=== PATIENT | female | born 1975 | race Caucasian/White ===

== ENCOUNTER 2017-10-26 09:38 | Emergency (ER) | payer OTHER ==
[~2017-10-26] VITALS: Ht 170.2 cm; Wt 68.9 kg
[2017-10-26] MEDS ORDERED: AZITHROMYCIN 250 MG TABLET PO ONE (10:00)
[2017-10-26] MEDS ORDERED: ALBUTEROL FS 2.5 MG/3 ML VIAL.NEB CONTNEB ONE (10:00)
[2017-10-26] MEDS ORDERED: predniSONE 20 MG TABLET PO ONE (10:00)
[2017-10-26] MEDS ORDERED: IPRATROPIUM NEB FS 0.5 MG/2.5 ML AMPUL.NEB NEB ONE (10:00)
[2017-10-26] MEDS ORDERED: predniSONE 20 MG TABLET ONE (10:14)
[2017-10-26] MEDS ORDERED: AZITHROMYCIN 250 MG TABLET ONE (10:14)
[2017-10-26] MEDS ORDERED: ALBUTEROL FS 2.5 MG/3 ML VIAL.NEB ONE (10:38)
[2017-10-26] MEDS ORDERED: IPRATROPIUM NEB FS 0.5 MG/2.5 ML AMPUL.NEB ONE (10:38)
[2017-10-26 11:52] VITALS: BP 110/75
== END 2017-10-26 11:57 | disposition home or self-care (01) ==
LOC: ER 09:40
DX: J45.909 Unspecified asthma, uncomplicated (principal)
CPT/HCPCS: 94640; 99283; A4606; J7512; Z7610

== ENCOUNTER 2020-06-12 18:56 | Emergency (ER) | payer SELFPAY ==
[~2020-06-12] VITALS: Ht 157.5 cm; Wt 72.6 kg
--- NOTE | 2020-06-12 19:11 | NUR ---
PT AAOX4. AMBULATORY WITH STEADY GIAT. BIBSELF C/O "BUMPS" ON HER HEAD AND BEHIND HER EARS. +NECK SPASMS X 1DAY. PLACED IN BED 9 ON MONITOR AND PULSE OX. NO ACUTE DISTRESS NOTED. VSS. SAT 100% ROOM AIR.
--- NOTE | 2020-06-12 19:18 | NUR ---
Stephany mauricio in [facility] - 06/12/20 at 1923 by JOCE ASKED PT TO PROVIDE URINE SAMPLE.
--- NOTE | 2020-06-12 19:26 | NUR ---
STREET [employer]PAIR[employer] HELPER AT BEDSIDE
[2020-06-12 19:29] LABS: BASOPHILS % (AUTO) 0.8 % (0.0-2.0); EOSINOPHILS % (AUTO) 7.8 % (0.0-6.0); HEMATOCRIT 29 % (33-45); HEMOGLOBIN 8.8 g/dL (11.5-14.8); LYMPHOCYTES # (AUTO) 2.3 /CMM (0.8-4.8); LYMPHOCYTES % (AUTO) 36.5 % (20.0-44.0); MEAN CORPUSCULAR HGB CONC 30 g/dl (31.0-36.0); MEAN CORPUSCULAR VOLUME 68 fL (82-100); MONOCYTES # (AUTO) 0.7 /CMM (0.1-1.30); MONOCYTES % (AUTO) 11.5 % (2.0-12.0); NEUTROPHILS # (AUTO) 2.7 /CMM (1.8-8.9); NEUTROPHILS % (AUTO) 43.4 % (43.0-81.0); PLATELET COUNT (AUTO) 210 /CMM (150-450); RED BLOOD CELL COUNT(AUTO) 4.26 MIL/uL (4.0-5.2); WHITE BLOOD COUNT (AUTO) 6.2 K/uL (4.3-11.0)
[2020-06-12] MEDS ORDERED: predniSONE 50 MG TABLET PO ONE (19:30)
[2020-06-12] MEDS ORDERED: SULFAMETH/TRIMETH 800/160 MG 1 UDTAB TABLET PO ONE (19:30)
[2020-06-12] MEDS ORDERED: diphenhydrAMINE HCL 25 MG CAPSULE PO ONE (19:30)
[2020-06-12] MEDS ORDERED: diphenhydrAMINE HCL 50 MG CAPSULE ONE (19:39)
[2020-06-12] MEDS ORDERED: predniSONE 10 MG TABLET ONE (19:39)
[2020-06-12] MEDS ORDERED: predniSONE 20 MG TABLET ONE (19:40)
[2020-06-12] MEDS ORDERED: SULFAMETH/TRIMETH 800/160 MG 1 UDTAB TABLET ONE (19:40)
[2020-06-12 19:54] LABS: CALCIUM, SERUM 9.1 mg/dL (8.5-10.1); CREATININE 0.6 mg/dL (0.6-1.3); POTASSIUM 3.5 mmol/L (3.5-5.1)
--- NOTE | 2020-06-12 19:54 | NUR ---
RESTING COMFORTABLY. VSS.
[2020-06-12] MEDS ORDERED: SULF1TAB48 PO (20:33)
[2020-06-12] MEDS ORDERED: PRED20TA PO (20:33)
[2020-06-12] MEDS ORDERED: EPIN0.3P3 IJ (20:33)
--- NOTE | 2020-06-12 20:50 | NUR ---
Patient discharged to home in stable condition. Written and verbal after care instructions given. Patient verbalizes understanding of instruction and RX.
[2020-06-12 21:12] VITALS: BP 129/68
== END 2020-06-12 20:50 | disposition home or self-care (01) ==
LOC: ER 19:00
DX: I88.9 Nonspecific lymphadenitis, unspecified (principal); R22.0 Localized swelling, mass and lump, head; J45.909 Unspecified asthma, uncomplicated
CPT/HCPCS: 36415; 71045; 80048; 84702; 85025; 99284; Q0163